=== PATIENT | female | born 1965 | race Caucasian/White ===

== ENCOUNTER → 2022-07-23 | Outpatient (CLI) | payer BC ==
--- NOTE | 2022-07-25 13:58 | MM ---
Reason for Exam: Screening (asymptomatic). Last mammogram was performed 1 year(s) and 2 month(s) ago. Risk Values: [place] 5 year model risk: 0.9%. NCI Lifetime model risk: 5.1%. Prior Study Comparison: 06/07/2020 Bilateral MG screening mammo w CAD - 2, Unknown. 06/09/2021 Bilateral MG screening mammo w CAD - 2, Unknown. Tissue Density: The breast tissue is extremely dense which could obscure a lesion on mammography. Findings: Analyzed By CAD. No discrete abnormality. Overall Assessment: Negative, BI-RAD 1 Management: Screening Mammogram of both breasts in 1 year. A clinical breast exam by your physician is recommended on an annual basis and results should be correlated with mammographic findings. Electronically signed and approved by: Shmuel Stewart M.D.
== END | disposition home or self-care (01) ==
LOC: RADMAMWWP 21:20
PROVIDERS: ATTEND Family Medicine
DX: Z12.31 Encounter for screening mammogram for malignant neoplasm of breast (principal)
CPT/HCPCS: 77063; 77067